=== PATIENT | female | born 1930 | race Caucasian/White ===

== ENCOUNTER 2016-10-05 09:30 | Outpatient (RCR) | payer OTHER ==
[~2016-10-05 09:30] MED LIST: CALCIUM + D SO1 EACH PO; HYDROCHLOROTHIA25 MG ORAL; LOVASTATIN40 MG ORAL; MULTIVITAMINS1 EAC2 ORAL
== END 2016-10-15 | disposition home or self-care (01) ==
LOC: PTY 09:30
DX: M76.61 Achilles tendinitis, right leg (principal)

== ENCOUNTER → 2016-11-15 | Outpatient (RCR) | payer OTHER | END | disposition home or self-care (01) | LOC: PTY 14:58 | DX: M76.61 Achilles tendinitis, right leg (principal) ==

== ENCOUNTER 2016-11-30 13:45 | Outpatient (RCR) | payer OTHER | END 2016-12-15 | disposition home or self-care (01) | LOC: PTY 13:45 | DX: M76.61 Achilles tendinitis, right leg (principal) | CPT/HCPCS: 97035; 97110; 97140; G0283 ==

== ENCOUNTER 2017-01-08 11:00 | Outpatient (RCR) | payer OTHER | END 2017-01-15 | disposition home or self-care (01) | LOC: PTY 11:00 | DX: M76.61 Achilles tendinitis, right leg (principal) | CPT/HCPCS: 97110; 97140; G0283 ==

== ENCOUNTER 2017-02-06 13:00 | Outpatient (RCR) | payer OTHER | END 2017-02-14 | disposition home or self-care (01) | LOC: PTY 13:00 | DX: M76.61 Achilles tendinitis, right leg (principal) | CPT/HCPCS: 97110; 97112; 97140; G0283 ==